=== PATIENT | female | born 1965 | race African-American/Black ===

== ENCOUNTER 2021-08-13 13:55 | Emergency (ER) | payer OTHER ==
[~2021-08-13] VITALS: Ht 162.6 cm; Wt 91.7 kg
[~2021-08-13 13:55] MED LIST: ATEN50TA8 PO
[2021-08-13 14:31] VITALS: BP 126/77
--- NOTE | 2021-08-13 14:40 | NUR ---
PT AMBULATED TO BED 05.
--- NOTE | 2021-08-13 14:54 | NUR ---
DR HURLEY AT BEDSIDE EVALUATING PATIENT.
--- NOTE | 2021-08-13 14:57 | NUR ---
RADIOLOGY AT BEDSIDE.
--- NOTE | 2021-08-13 14:59 | NUR ---
LAB AT BEDSIDE.
[2021-08-13] MEDS ORDERED: KETOROLAC 15 MG/ML VIAL IVP ONE (15:00)
[2021-08-13 15:23] LABS: BASOPHILS % (AUTO) 0.7 % (0.0-2.0); HEMOGLOBIN 12.8 g/dL (12.0-16.0); LYMPHOCYTES % (AUTO) 35.9 % (20.5-51.1); MEAN CORPUSCULAR HEMOGLOBIN 30 pg (27-31); MEAN CORPUSCULAR HGB CONC 33 g/dL (33-37); MEAN CORPUSCULAR VOLUME 90.5 fL (80-94); MONOCYTES # (AUTO) 0.5 K/uL (0.8-1.0); MONOCYTES % (AUTO) 9.2 % (1.7-9.3); NEUTROPHILS % (AUTO) 54.2 % (42.2-75.2); PLATELET COUNT (AUTO) 291 K/uL (140-450); RED BLOOD CELL COUNT(AUTO) 4.31 MIL/uL (4.20-5.40); RED CELL DISTRIBUTION WIDTH 14.7 % (11.6-13.7); WHITE BLOOD COUNT (AUTO) 5.5 K/uL (4.8-10.8)
--- NOTE | 2021-08-13 15:25 | NUR ---
56 Y/O FEMALE C/O CHEST PAIN. PATIENT HAS LEFT SIDE CHEST PAIN 8/10 WITH A SHARP FEELING. PATIENT ALSO HAS NAUSEA. PATIENTS BLOOD SUGAR AT TRIAGE WAS 251. MEDICAL HISTORY: DM, HTN NKDA
[2021-08-13 15:38] LABS: ANION GAP 8.4 (8-16); CARBON DIOXIDE 30.2 mmol/L (21-32); CHLORIDE 102 mmol/L (98-107); GFR ARICAN-AMERICAN 73 mL/min (>90); GLUCOSE 207 mg/dL (74-106); POTASSIUM 3.6 mmol/L (3.5-5.1); SODIUM SERUM 137 mmol/L (136-145); UREA NITROGEN, BLOOD 6 mg/dL (7-18)
[2021-08-13 15:48] LABS: ASPARTATE AMINOTRANSFERASE 41 U/L (15-37); TOTAL BILIRUBIN 0.2 mg/dL (0.0-1.0)
--- NOTE | 2021-08-13 16:05 | NUR ---
PATIENT AMBULATED TO RESTROOM WITH CANE. PATIENT HAS STEADY GAIT.
--- NOTE | 2021-08-13 16:09 | NUR ---
56/F PRESENTS TO ED WITH C/O LEFT SIDED CHEST PAIN SINCE NOON TODAY. PATIENT STATES PAIN STARTED AFTER EATING, PATIENT ALSO C/O NAUSEA, DENIES V/D OR RADIATION OF PAIN. REPORTS 8/10 SHARP, CONSTANT PAIN, DENIES ABD PAIN, SOB, RECENT HEAVY LIFTING OR RECENT SICK CONTACTS.
[2021-08-13] MEDS ORDERED: MORPHINE SULFATE 4 MG/ML SYR IVP ONE (16:30)
--- NOTE | 2021-08-13 19:14 | NUR ---
PATIENT WAS TAKEN TO IMAGING VIA WHEELCHAIR.
[2021-08-13 19:20] VITALS: BP 165/89
--- NOTE | 2021-08-13 19:26 | NUR ---
PATIENT RETURNED FROM CT VIA WHEELCHAIR.
--- NOTE | 2021-08-13 19:27 | NUR ---
PT RETURN FROM RADIOLOGY
[2021-08-13] MEDS ORDERED: AZIT250T3 PO (20:08)
[2021-08-13] MEDS ORDERED: ACET-9535 PO (20:08)
--- NOTE | 2021-08-13 20:20 | NUR ---
Patient discharged with v/s stable. Written and verbal after care instructions given. Patient alert, oriented and verbalized understanding of instructions. Ambulatory with steady gait. All questions addressed prior to discharge. ID band removed. Patient advised to follow up with PMD. Rx of HYDROCODONE-ACETAMINOPHEN AND AZITHROMYCIN given. Opportunity to ask questions provided and answered.
--- NOTE | 2021-08-13 20:21 | NUR ---
The patient's care was reviewed and supervised by Vivi Uriostegui RN.
== END 2021-08-13 20:20 | disposition home or self-care (01) ==
LOC: MED 13:55
DX: R11.0 Nausea (principal); R07.89 Other chest pain; E11.9 Type 2 diabetes mellitus without complications; Z79.899 Other long term (current) drug therapy
CPT/HCPCS: 36415; 71045; 71275; 80053; 81002; 81025; 84484; 85025; 85379; 93005; 96374; 96375; 99285; J1885; J2270; Q0092; Q9967